=== PATIENT | male | born 1975 | race Caucasian/White ===

== ENCOUNTER 2023-10-03 15:43 | Inpatient (IN) | payer OTHER ==
[~2023-10-03] VITALS: Ht 185.4 cm; Wt 101.6 kg
[2023-10-03 15:59] VITALS: BP 118/69; PULSE 111; RESP 21; TEMP 99; O2SAT 99
[2023-10-03] MEDS ORDERED: PIPERACILLIN/TAZOBACTAM 3.375 GM VIAL IV ONE (16:41)
[2023-10-03] MEDS: PIPERACILLIN/TAZOBACTAM 3.375 GM in DEXTROSE 5% 50 ML IV ONE (16:56)
[2023-10-03] MEDS: NACL 0.9% 2,000 ML IV SCH (16:57)
[2023-10-03 16:59] LABS: BASOPHILS # (AUTO) 0.1 K/uL (0.00-0.22); BASOPHILS % (AUTO) 0.8 % (0.0-2.0); EOSINOPHILS % (AUTO) 0.2 % (0.0-4.0); HEMATOCRIT 38.5 % (36-52); HEMOGLOBIN 13.1 g/dL (12.0-18.0); LYMPHOCYTES # (AUTO) 1.1 K/uL (2.0-11.5); LYMPHOCYTES % (AUTO) 6.6 % (20.5-51.1); MEAN CORPUSCULAR HEMOGLOBIN 28 pg (27-31); MEAN CORPUSCULAR HGB CONC 34 g/dL (33-37); MEAN CORPUSCULAR VOLUME 83.3 fL (80-94); MONOCYTES # (AUTO) 1.6 K/uL (0.8-1.0); MONOCYTES % (AUTO) 9.6 % (1.7-9.3); NEUTROPHILS # (AUTO) 14.1 K/uL (1.8-7.7); NEUTROPHILS % (AUTO) 82.8 % (42.2-75.2); PLATELET COUNT (AUTO) 324 K/uL (140-450); RED BLOOD CELL COUNT(AUTO) 4.62 MIL/uL (4.20-6.10); RED CELL DISTRIBUTION WIDTH 13.2 % (11.6-13.7); WHITE BLOOD COUNT (AUTO) 17.1 K/uL (4.8-10.8)
[2023-10-03 17:14] LABS: ANION GAP 15.2 (8-16); CALCIUM 9.5 mg/dL (8.5-10.1); CARBON DIOXIDE 27.3 mmol/L (21-32); CREATININE 1.6 mg/dL (0.6-1.3); POTASSIUM 4.5 mmol/L (3.5-5.1)
[2023-10-03 17:17] LABS: INR 0.93 (0.8-1.2); PARTIAL THROMBOPLASTIN TIME 28.8 secs (22-35.6); PROTHROMBIN TIME 9.8 secs (10.8-13.4)
[2023-10-03 17:24] LABS: ALANINE AMINOTRANSFERASE 38 U/L (12-78); ALBUMIN 2.8 g/dL (3.4-5.0); ALKALINE PHOSPHATASE 180 U/L (50-136); ASPARTATE AMINOTRANSFERASE 28 U/L (15-37); BILIRUBIN,DIRECT 0.2 mg/dL (0.0-0.3); TOTAL PROTEIN, SERUM 7.2 g/dL (6.4-8.2)
[2023-10-03 17:28] LABS: LACTIC ACID 2.6 mmol/L (0.4-2.0)
[2023-10-03] MEDS ORDERED: VANCOMYCIN 1,000 MG VIAL ONE (17:31)
[2023-10-03] MEDS: VANCOMYCIN 1,000 MG in DEXTROSE 5% 250 ML IV ONE (17:37)
[2023-10-03] MEDS ORDERED: METF-350 PO (18:32)
[2023-10-03] MEDS ORDERED: VANCOMYCIN PER PHARMACY MC PRN (19:05)
[2023-10-03] MEDS ORDERED: POTASSIUM CHLORIDE 10 MEQ TABER PO PRN (19:05)
[2023-10-03 19:32] LABS: APPEARANCE,URINE CLEAR (CLEAR); BILIRUBIN,URINE NEGATIVE (NEGATIVE); BLOOD, URINE NEGATIVE (NEGATIVE); COLOR,URINE YELLOW (YELLOW); LEUKOCYTE ESTERASE ,URINE NEGATIVE (NEGATIVE); NITRITE, URINE NEGATIVE (NEGATIVE); PROTEIN,URINE NEGATIVE (NEGATIVE); UGLUCOSE 3+ (NEGATIVE); UROBILINOGEN,URINE 0.2 EU/dL (0.2 - 1)
[2023-10-03] MEDS ORDERED: INSU100S22 SUBQ (21:41)
[2023-10-03 22:05] VITALS: BP 125/67; PULSE 102; PULSE 98; RESP 18; TEMP 98.9; O2SAT 94
[2023-10-03] MEDS: NACL 0.9% 1,000 ML IV SCH (22:51)
[2023-10-04] VITALS: BP 132/65; PULSE 102; PULSE 98; RESP 18; TEMP 98.8; O2SAT 94
[2023-10-04] MEDS: cefTRIAXone 1,000 MG VIAL ONE ×2 (01:36→20:15)
[2023-10-04 04:00] VITALS: BP 135/67; PULSE 96; RESP 18; TEMP 98.6; O2SAT 94
[2023-10-04 06:07] LABS: ANION GAP 13.9 (8-16); CARBON DIOXIDE 26.8 mmol/L (21-32); CREATININE 1.2 mg/dL (0.6-1.3); POTASSIUM 4.7 mmol/L (3.5-5.1)
[2023-10-04 06:13] LABS: BASOPHILS # (AUTO) 0.1 K/uL (0.00-0.22); BASOPHILS % (AUTO) 0.4 % (0.0-2.0); EOSINOPHILS # (AUTO) 0.1 K/uL (0-0.4); EOSINOPHILS % (AUTO) 0.6 % (0.0-4.0); HEMATOCRIT 35.4 % (36-52); HEMOGLOBIN 11.9 g/dL (12.0-18.0); LYMPHOCYTES # (AUTO) 1.6 K/uL (2.0-11.5); LYMPHOCYTES % (AUTO) 9.3 % (20.5-51.1); MEAN CORPUSCULAR HEMOGLOBIN 28 pg (27-31); MEAN CORPUSCULAR HGB CONC 34 g/dL (33-37); MEAN CORPUSCULAR VOLUME 83.4 fL (80-94); MONOCYTES # (AUTO) 2.1 K/uL (0.8-1.0); MONOCYTES % (AUTO) 11.8 % (1.7-9.3); NEUTROPHILS # (AUTO) 13.8 K/uL (1.8-7.7); NEUTROPHILS % (AUTO) 77.9 % (42.2-75.2); PLATELET COUNT (AUTO) 290 K/uL (140-450); RED BLOOD CELL COUNT(AUTO) 4.24 MIL/uL (4.20-6.10); RED CELL DISTRIBUTION WIDTH 12.7 % (11.6-13.7); WHITE BLOOD COUNT (AUTO) 17.7 K/uL (4.8-10.8)
[2023-10-04 06:15] LABS: PHOSPHORUS 2.9 mg/dL (2.5-4.9)
[2023-10-04 08:00] VITALS: BP 130/71; PULSE 103; PULSE 113; PULSE 89; RESP 18; TEMP 98.2; O2SAT 100
[2023-10-04] MEDS: DOCUSATE SODIUM 100 MG GELCAP PO SCH (09:50)
[2023-10-04] MEDS: HYDROcodone/APAP 5/325 MG 1 TAB TAB PO PRN (09:51)
[2023-10-04] MEDS: VANCOMYCIN 1.25GM PREMIX 250 ML IV SCH (10:59)
[2023-10-04 12:00] VITALS: BP 140/72; PULSE 95; RESP 18; TEMP 97.4; O2SAT 95
[2023-10-04] MEDS ORDERED: DEXTROSE 50% 50 ML SYR IVP PRN (13:30)
[2023-10-04 16:00] VITALS: BP 140/71; PULSE 101; PULSE 95; RESP 18; TEMP 97.5; O2SAT 95
[2023-10-04] MEDS: BLOOD GLUCOSE MONITORING 1 DEV DEV FS SCH (16:43)
[2023-10-04] MEDS: INSULIN LISPRO SLIDING SCALE 100 UNITS/ML VIAL SUBQ PRN (17:00)
[2023-10-04 20:00] VITALS: BP 142/74; PULSE 98; PULSE 99; RESP 18; TEMP 98.5; O2SAT 90
[2023-10-04] MEDS: metroNIDAZOLE 500 MG/NS PREMIX 100 ML IV SCH (20:50)
[2023-10-04] MEDS: MEDS-TO-BEDS MC SCH (21:00)
[2023-10-04] MEDS: INSULIN LANTUS 100 UNITS/ML 10 ML VIAL SUBQ SCH (21:09)
[2023-10-05] VITALS: BP 140/72; PULSE 101; PULSE 97; RESP 18; TEMP 98.2; O2SAT 94
[2023-10-05 04:00] VITALS: BP 137/67; PULSE 91; PULSE 99; RESP 18; TEMP 98.3; O2SAT 94
[2023-10-05 06:18] LABS: BASOPHILS % (AUTO) 0.3 % (0.0-2.0); EOSINOPHILS # (AUTO) 0.2 K/uL (0-0.4); EOSINOPHILS % (AUTO) 0.9 % (0.0-4.0); HEMOGLOBIN 11.7 g/dL (12.0-18.0); LYMPHOCYTES # (AUTO) 1.8 K/uL (2.0-11.5); MEAN CORPUSCULAR HEMOGLOBIN 29 pg (27-31); MEAN CORPUSCULAR HGB CONC 35 g/dL (33-37); MEAN CORPUSCULAR VOLUME 82.4 fL (80-94); MONOCYTES # (AUTO) 1.8 K/uL (0.8-1.0); NEUTROPHILS # (AUTO) 12.9 K/uL (1.8-7.7); NEUTROPHILS % (AUTO) 76.8 % (42.2-75.2); PLATELET COUNT (AUTO) 328 K/uL (140-450); RED BLOOD CELL COUNT(AUTO) 4.12 MIL/uL (4.20-6.10); WHITE BLOOD COUNT (AUTO) 16.7 K/uL (4.8-10.8)
[2023-10-05 06:31] LABS: MAGNESIUM 1.6 mg/dL (1.8-2.4); PHOSPHORUS 2.3 mg/dL (2.5-4.9)
[2023-10-05 06:56] LABS: ANION GAP 14.1 (8-16); CALCIUM 8.5 mg/dL (8.5-10.1); CARBON DIOXIDE 25.3 mmol/L (21-32); POTASSIUM 4.4 mmol/L (3.5-5.1)
[2023-10-05 08:00] VITALS: BP 140/71; PULSE 101; PULSE 103; RESP 20; TEMP 98.9; O2SAT 94
[2023-10-05 12:00] VITALS: BP 129/67; PULSE 93; PULSE 95; RESP 20; TEMP 98.1; O2SAT 97
[2023-10-05 16:00] VITALS: BP 140/68; PULSE 100; PULSE 98; RESP 20; TEMP 98.9; O2SAT 95
[2023-10-05] MEDS: metFORMIN 850 MG TAB PO SCH (17:34)
[2023-10-05] MEDS: MAGNESIUM OXIDE 400 MG TAB PO PRN (18:49)
[2023-10-05 20:00] VITALS: BP 132/67; PULSE 101; PULSE 99; RESP 18; TEMP 97.8; O2SAT 90; O2SAT 97
[2023-10-06] VITALS: BP 124/70; PULSE 86; PULSE 91; RESP 18; TEMP 98.2; O2SAT 98
[2023-10-06 04:00] VITALS: BP 128/66; PULSE 72; PULSE 99; RESP 16; TEMP 97.4; O2SAT 97
[2023-10-06 07:14] LABS: ANION GAP 10.3 (8-16); CALCIUM 9.2 mg/dL (8.5-10.1); CARBON DIOXIDE 29.6 mmol/L (21-32); CREATININE 1.1 mg/dL (0.6-1.3); POTASSIUM 4.9 mmol/L (3.5-5.1)
[2023-10-06 07:32] LABS: BASOPHILS # (AUTO) 0.1 K/uL (0.00-0.22); BASOPHILS % (AUTO) 0.3 % (0.0-2.0); EOSINOPHILS # (AUTO) 0.1 K/uL (0-0.4); EOSINOPHILS % (AUTO) 0.8 % (0.0-4.0); HEMATOCRIT 34.5 % (36-52); HEMOGLOBIN 11.7 g/dL (12.0-18.0); LYMPHOCYTES # (AUTO) 1.8 K/uL (2.0-11.5); LYMPHOCYTES % (AUTO) 10.1 % (20.5-51.1); MEAN CORPUSCULAR HEMOGLOBIN 29 pg (27-31); MEAN CORPUSCULAR HGB CONC 34 g/dL (33-37); MEAN CORPUSCULAR VOLUME 84.1 fL (80-94); MONOCYTES # (AUTO) 2.1 K/uL (0.8-1.0); MONOCYTES % (AUTO) 11.3 % (1.7-9.3); NEUTROPHILS # (AUTO) 14.1 K/uL (1.8-7.7); NEUTROPHILS % (AUTO) 77.5 % (42.2-75.2); PLATELET COUNT (AUTO) 329 K/uL (140-450); RED BLOOD CELL COUNT(AUTO) 4.11 MIL/uL (4.20-6.10); RED CELL DISTRIBUTION WIDTH 13.1 % (11.6-13.7); WHITE BLOOD COUNT (AUTO) 18.2 K/uL (4.8-10.8)
[2023-10-06 07:50] LABS: MAGNESIUM 1.3 mg/dL (1.8-2.4); PHOSPHORUS 2.9 mg/dL (2.5-4.9)
[2023-10-06 08:00] VITALS: BP 145/81; PULSE 100; PULSE 103; PULSE 99; RESP 18; RESP 20; TEMP 98.4; O2SAT 90; O2SAT 98
[2023-10-06] MEDS: lisinopriL 20 MG TAB PO SCH (09:17)
[2023-10-06] MEDS: FENOFIBRATE 48 MG TAB PO SCH (09:17)
[2023-10-06] MEDS: ONDANSETRON 4 MG/2 ML VIAL IVP PRN (09:40)
[2023-10-06 12:00] VITALS: BP 124/63; PULSE 97; RESP 20; TEMP 98.7; O2SAT 97
[2023-10-06 16:00] VITALS: BP 156/77; PULSE 104; PULSE 106; RESP 20; TEMP 99.4; O2SAT 100
[2023-10-06] MEDS: MAG SULF 2000 MG/WATER PREMIX 50 ML IV ONE (19:04)
[2023-10-06 20:00] VITALS: BP 132/68; PULSE 101; PULSE 102; RESP 18; TEMP 100.1; O2SAT 97
[2023-10-06] MEDS: ACETAMINOPHEN 325 MG TAB PO PRN (20:30)
[2023-10-06] MEDS: ATORVASTATIN 80 MG TAB PO SCH (20:32)
[2023-10-07] VITALS: BP 128/70; PULSE 88; PULSE 98; RESP 16; TEMP 99; O2SAT 98
[2023-10-07 04:00] VITALS: BP 134/66; PULSE 82; PULSE 93; RESP 18; TEMP 97.8; O2SAT 98
[2023-10-07 06:11] LABS: BASOPHILS % (AUTO) 0.2 % (0.0-2.0); EOSINOPHILS # (AUTO) 0.1 K/uL (0-0.4); EOSINOPHILS % (AUTO) 0.4 % (0.0-4.0); HEMATOCRIT 32.6 % (36-52); HEMOGLOBIN 11.1 g/dL (12.0-18.0); LYMPHOCYTES # (AUTO) 1.4 K/uL (2.0-11.5); LYMPHOCYTES % (AUTO) 7.1 % (20.5-51.1); MEAN CORPUSCULAR HEMOGLOBIN 29 pg (27-31); MEAN CORPUSCULAR HGB CONC 34 g/dL (33-37); MEAN CORPUSCULAR VOLUME 83.6 fL (80-94); MONOCYTES # (AUTO) 1.7 K/uL (0.8-1.0); MONOCYTES % (AUTO) 8.9 % (1.7-9.3); NEUTROPHILS % (AUTO) 83.4 % (42.2-75.2); PLATELET COUNT (AUTO) 329 K/uL (140-450); RED BLOOD CELL COUNT(AUTO) 3.91 MIL/uL (4.20-6.10); WHITE BLOOD COUNT (AUTO) 19.2 K/uL (4.8-10.8)
[2023-10-07 06:43] LABS: MAGNESIUM 1.9 mg/dL (1.8-2.4); PHOSPHORUS 1.9 mg/dL (2.5-4.9)
[2023-10-07 06:50] LABS: ANION GAP 13.1 (8-16); CALCIUM 9.1 mg/dL (8.5-10.1); CARBON DIOXIDE 25.6 mmol/L (21-32); POTASSIUM 4.7 mmol/L (3.5-5.1)
[2023-10-07 08:00] VITALS: BP 133/72; PULSE 92; PULSE 96; PULSE 99; RESP 18; RESP 20; TEMP 98.8; O2SAT 94; O2SAT 99
[2023-10-07 12:00] VITALS: BP 136/70; PULSE 98; PULSE 99; RESP 20; TEMP 98.1; O2SAT 96
[2023-10-07] MEDS: LIDOCAINE/EPI 1% 1:100000 20 ML VIAL INJ ONE (16:36)
[2023-10-07] MEDS: BUPIVACAINE-MPF 0.25% 30 ML VIAL INJ ONE (16:37)
[2023-10-07] MEDS: LIDOCAINE 2% 1000 MG/50 ML VIAL INJ ONE (16:37)
[2023-10-07] MEDS: PROPOFOL 200 MG/20 ML VIAL IV ONE ×2 (17:17→17:46)
[2023-10-07] MEDS: fentaNYL citrate 0.05 MG/ML VIAL ONE (17:18)
[2023-10-07] MEDS: MIDAZOLAM 2 MG/2 ML VIAL ONE (17:18)
[2023-10-07] MEDS ORDERED: ONDANSETRON 4 MG/2 ML VIAL IVP PRN (17:45)
[2023-10-07] MEDS ORDERED: HYDROmorphone 1 MG/ML AMP IVP PRN (17:45)
[2023-10-07] MEDS: BLOOD GLUCOSE MONITORING 1 DEV DEV FS ONE (17:45)
[2023-10-07] MEDS ORDERED: diphenhydrAMINE 50 MG/ML VIAL IVP PRN (17:45)
[2023-10-07] MEDS: LACTATED RINGERS 1,000 ML IV SCH (17:45)
[2023-10-07] MEDS: DEXAMETHASONE 4 MG/ML VIAL ONE (17:46)
[2023-10-07] MEDS: HYDROGEN PEROXIDE 3% 240 ML BTL TP ONE (17:46)
[2023-10-07] MEDS: ONDANSETRON 4 MG/2 ML VIAL ONE (17:46)
[2023-10-07 20:00] VITALS: BP 145/75; PULSE 83; RESP 20; TEMP 97.8; TEMP 98.8; O2SAT 95
[2023-10-08] MEDS ORDERED: CLONIDINE HYDROCHLORIDE 0.1 MG TAB PO PRN (06:35)
[2023-10-08 07:13] LABS: BASOPHILS # (AUTO) 0.1 K/uL (0.00-0.22); BASOPHILS % (AUTO) 0.2 % (0.0-2.0); EOSINOPHILS % (AUTO) 0.2 % (0.0-4.0); HEMATOCRIT 35.2 % (36-52); HEMOGLOBIN 11.7 g/dL (12.0-18.0); LYMPHOCYTES # (AUTO) 1.4 K/uL (2.0-11.5); LYMPHOCYTES % (AUTO) 5.9 % (20.5-51.1); MEAN CORPUSCULAR HEMOGLOBIN 28 pg (27-31); MEAN CORPUSCULAR HGB CONC 33 g/dL (33-37); MEAN CORPUSCULAR VOLUME 84.5 fL (80-94); MONOCYTES # (AUTO) 1.5 K/uL (0.8-1.0); MONOCYTES % (AUTO) 6.5 % (1.7-9.3); NEUTROPHILS # (AUTO) 20.6 K/uL (1.8-7.7); NEUTROPHILS % (AUTO) 87.2 % (42.2-75.2); PLATELET COUNT (AUTO) 376 K/uL (140-450); RED BLOOD CELL COUNT(AUTO) 4.17 MIL/uL (4.20-6.10); RED CELL DISTRIBUTION WIDTH 13.2 % (11.6-13.7); WHITE BLOOD COUNT (AUTO) 23.6 K/uL (4.8-10.8)
[2023-10-08 08:18] LABS: MAGNESIUM 1.8 mg/dL (1.8-2.4); PHOSPHORUS 3.1 mg/dL (2.5-4.9)
[2023-10-08 08:20] LABS: ANION GAP 16.4 (8-16); POTASSIUM 5.4 mmol/L (3.5-5.1)
[2023-10-08 08:41] VITALS: TEMP 98.8
[2023-10-08 08:42] VITALS: PULSE 92; RESP 20; O2SAT 99
[2023-10-08 20:00] VITALS: PULSE 92; RESP 18; TEMP 98.2; O2SAT 96
[2023-10-09] VITALS: BP 137/78; PULSE 80; RESP 16; TEMP 98.4; O2SAT 98
[2023-10-09 04:00] VITALS: BP 149/78; PULSE 86; RESP 18; TEMP 98.6; O2SAT 96
[2023-10-09 08:00] VITALS: PULSE 84; RESP 18; TEMP 98.8; O2SAT 97
[2023-10-09 12:30] VITALS: BP 140/83; PULSE 88; RESP 18; TEMP 98.8; O2SAT 96
[2023-10-09] MEDS ORDERED: IBUPROFEN 800 MG TAB PO PRN (16:15)
[2023-10-09] MEDS ORDERED: VANCOMYCIN PER PHARMACY MC PRN (17:25)
[2023-10-09] MEDS ORDERED: levoFLOXacin 750 MG TAB PO SCH (18:00)
[2023-10-09] MEDS: PIPERACILLIN/TAZOBACTAM 3.375 GM in DEXTROSE 5% 50 ML IV SCH (18:46)
[2023-10-09 20:00] VITALS: BP 149/77; PULSE 94; RESP 16; TEMP 97.8; O2SAT 97
[2023-10-09] MEDS: VANCOMYCIN 1.25GM PREMIX 250 ML IV SCH (21:24)
[2023-10-10 04:00] VITALS: BP 148/72; PULSE 87; RESP 16; TEMP 98.4; O2SAT 97
[2023-10-10 10:07] LABS: BASOPHILS % (AUTO) 0.3 % (0.0-2.0); EOSINOPHILS # (AUTO) 0.2 K/uL (0-0.4); EOSINOPHILS % (AUTO) 1.3 % (0.0-4.0); HEMATOCRIT 34.4 % (36-52); HEMOGLOBIN 11.6 g/dL (12.0-18.0); LYMPHOCYTES # (AUTO) 2.3 K/uL (2.0-11.5); MEAN CORPUSCULAR HEMOGLOBIN 28 pg (27-31); MEAN CORPUSCULAR HGB CONC 34 g/dL (33-37); MEAN CORPUSCULAR VOLUME 83.7 fL (80-94); MONOCYTES # (AUTO) 1.5 K/uL (0.8-1.0); MONOCYTES % (AUTO) 10.6 % (1.7-9.3); NEUTROPHILS # (AUTO) 10.5 K/uL (1.8-7.7); NEUTROPHILS % (AUTO) 71.8 % (42.2-75.2); PLATELET COUNT (AUTO) 377 K/uL (140-450); RED BLOOD CELL COUNT(AUTO) 4.11 MIL/uL (4.20-6.10); RED CELL DISTRIBUTION WIDTH 13.2 % (11.6-13.7); WHITE BLOOD COUNT (AUTO) 14.6 K/uL (4.8-10.8)
[2023-10-10 20:00] VITALS: BP 156/85; PULSE 89; PULSE 91; RESP 16; TEMP 98; O2SAT 98
[2023-10-11 04:00] VITALS: BP 135/68; PULSE 90; RESP 18; TEMP 98.2; O2SAT 98
[2023-10-11 08:00] VITALS: BP 135/67; PULSE 89; RESP 20; TEMP 97.1; O2SAT 98
[2023-10-11 08:41] VITALS: TEMP 97.6
[2023-10-11 08:42] VITALS: PULSE 89; RESP 20; O2SAT 99
[2023-10-11 08:50] LABS: ANION GAP 11.2 (8-16); CALCIUM 8.9 mg/dL (8.5-10.1); CARBON DIOXIDE 28.1 mmol/L (21-32); CREATININE 0.9 mg/dL (0.6-1.3); POTASSIUM 4.3 mmol/L (3.5-5.1)
[2023-10-11 11:28] LABS: BASOPHILS % (AUTO) 0.2 % (0.0-2.0); EOSINOPHILS # (AUTO) 0.1 K/uL (0-0.4); HEMOGLOBIN 11.7 g/dL (12.0-18.0); LYMPHOCYTES # (AUTO) 2.3 K/uL (2.0-11.5); LYMPHOCYTES % (AUTO) 16.8 % (20.5-51.1); MEAN CORPUSCULAR HEMOGLOBIN 28 pg (27-31); MEAN CORPUSCULAR HGB CONC 34 g/dL (33-37); MEAN CORPUSCULAR VOLUME 84.2 fL (80-94); MONOCYTES # (AUTO) 1.4 K/uL (0.8-1.0); MONOCYTES % (AUTO) 10.2 % (1.7-9.3); NEUTROPHILS % (AUTO) 71.8 % (42.2-75.2); PLATELET COUNT (AUTO) 380 K/uL (140-450); RED BLOOD CELL COUNT(AUTO) 4.16 MIL/uL (4.20-6.10); RED CELL DISTRIBUTION WIDTH 13.5 % (11.6-13.7); WHITE BLOOD COUNT (AUTO) 13.9 K/uL (4.8-10.8)
[2023-10-11 16:00] VITALS: BP 125/70; PULSE 85; RESP 21; TEMP 97.8; O2SAT 98
[2023-10-11 20:00] VITALS: BP 147/79; PULSE 86; RESP 18; TEMP 97.9; O2SAT 95; O2SAT 98
[2023-10-12 04:00] VITALS: BP 139/72; PULSE 86; RESP 15; TEMP 98.3; O2SAT 98
[2023-10-12 08:00] VITALS: BP 145/70; PULSE 83; RESP 18; TEMP 97.8; O2SAT 98
[2023-10-12 08:09] VITALS: TEMP 98.7
[2023-10-12 08:10] VITALS: PULSE 83; RESP 20; O2SAT 99
[2023-10-12 10:01] LABS: ANION GAP 11.7 (8-16); CALCIUM 8.8 mg/dL (8.5-10.1); CARBON DIOXIDE 27.4 mmol/L (21-32); CREATININE 0.9 mg/dL (0.6-1.3); POTASSIUM 4.1 mmol/L (3.5-5.1)
[2023-10-12 16:00] VITALS: BP 125/85; PULSE 78; RESP 79; TEMP 98.2; O2SAT 98
[2023-10-12 20:00] VITALS: BP 152/81; PULSE 83; PULSE 90; RESP 18; RESP 20; TEMP 97.8; O2SAT 96; O2SAT 99
[2023-10-13 04:00] VITALS: BP 115/47; PULSE 80; RESP 18; TEMP 98.3; O2SAT 97
[2023-10-13 07:04] LABS: CALCIUM 8.9 mg/dL (8.5-10.1); CARBON DIOXIDE 27.5 mmol/L (21-32); CREATININE 0.9 mg/dL (0.6-1.3); POTASSIUM 4.5 mmol/L (3.5-5.1)
[2023-10-13 07:51] VITALS: TEMP 98.1
[2023-10-13 07:55] VITALS: PULSE 86; RESP 19; O2SAT 98
[2023-10-13 08:00] VITALS: BP 145/78; PULSE 89; RESP 18; TEMP 98.9; O2SAT 99
[2023-10-13 16:00] VITALS: BP 131/74; PULSE 90; RESP 18; TEMP 99.9; O2SAT 100
[2023-10-13 20:00] VITALS: BP 134/70; PULSE 86; PULSE 91; RESP 19; TEMP 97.2; TEMP 98.1; O2SAT 97; O2SAT 98
[2023-10-14 08:00] VITALS: BP 122/85; PULSE 76; PULSE 87; RESP 18; TEMP 96.7; TEMP 97.3; O2SAT 95
[2023-10-14 09:45] LABS: ANION GAP 10.2 (8-16); CALCIUM 9.3 mg/dL (8.5-10.1); CARBON DIOXIDE 29.9 mmol/L (21-32); POTASSIUM 5.1 mmol/L (3.5-5.1)
[2023-10-14] MEDS: PIPERACILLIN/TAZOBACTAM 3.375 GM in DEXTROSE 5% 50 ML IV SCH (11:55)
[2023-10-14 12:00] VITALS: BP 129/86; PULSE 96; RESP 18; TEMP 97.6; O2SAT 95
[2023-10-14] MEDS ORDERED: LIP80 PO (16:43)
[2023-10-14] MEDS ORDERED: LISI20TA29 PO (16:43)
[2023-10-14] MEDS ORDERED: TRI48 PO (16:43)
[2023-10-14] MEDS ORDERED: IBUP-2217 PO (16:43)
[2023-10-14] MEDS ORDERED: VANC1FRO IV (16:43)
[2023-10-14] MEDS ORDERED: PIPE1SOL IV (16:43)
[2023-10-14 20:00] VITALS: BP 157/79; PULSE 95; RESP 18; TEMP 97.6; O2SAT 95
[2023-10-15 04:00] VITALS: BP 131/67; PULSE 87; RESP 18; TEMP 96.8; O2SAT 96
[2023-10-15 06:01] LABS: ANION GAP 12.1 (8-16); CALCIUM 9.3 mg/dL (8.5-10.1); CARBON DIOXIDE 27.2 mmol/L (21-32); CREATININE 0.9 mg/dL (0.6-1.3); POTASSIUM 4.3 mmol/L (3.5-5.1)
[2023-10-15 08:00] VITALS: PULSE 77; RESP 18; TEMP 97.8; O2SAT 98
[2023-10-15 12:00] VITALS: BP 141/79; PULSE 77; RESP 18; TEMP 97.8; O2SAT 98
[2023-10-15 17:25] VITALS: BP 149/81; PULSE 97; RESP 18; TEMP 97.7
== END 2023-10-15 17:50 | disposition home health service (06) | DRG 710 ==
LOC: MED 15:43 → MTU 19:10
PROVIDERS: ADMIT Internal Medicine; ATTEND Internal Medicine
PROC: 02HV33Z Insertion of Infusion Device into Superior Vena Cava, Percutaneous Approach (ICD-10-PCS; 2023-10-06)
PROC: B548ZZA Ultrasonography of Superior Vena Cava, Guidance (ICD-10-PCS; 2023-10-06)
PROC: 0Y6N0ZF Detachment at Left Foot, Partial 5th Ray, Open Approach (ICD-10-PCS; principal; 2023-10-07 15:00)
DX: A41.9 Sepsis, unspecified organism (principal); N17.0 Acute kidney failure with tubular necrosis; R64 Cachexia; E44.0 Moderate protein-calorie malnutrition; E11.52 Type 2 diabetes mellitus with diabetic peripheral angiopathy with gangrene; L03.116 Cellulitis of left lower limb; M86.8X7 Other osteomyelitis, ankle and foot; E11.621 Type 2 diabetes mellitus with foot ulcer; E11.628 Type 2 diabetes mellitus with other skin complications; E11.65 Type 2 diabetes mellitus with hyperglycemia; E78.5 Hyperlipidemia, unspecified; E11.69 Type 2 diabetes mellitus with other specified complication; Z79.899 Other long term (current) drug therapy; Z68.29 Body mass index [BMI] 29.0-29.9, adult
CPT/HCPCS: 36415; 71045; 73630; 73700; 80048; 80076; 80202; 81003; 82948; 83605; 83735; 84100; 84484; 85025; 85610; 85651; 85730; 86140; 87040; 87070; 87075; 87081; 87086; 87186; 87205; 88304; 88311; 93005; 96365; 96367; 99291; J0696; J1100; J1644; J1815; J2001; J2250; J2405; J2543; J2704; J3010; J3370; J3372; J3475; J3490; J7060; Q0092